=== PATIENT | male | born 1960 | race Caucasian/White ===

== ENCOUNTER 2018-11-11 11:55 | Emergency (ER) | payer OTHER ==
[~2018-11-11] VITALS: Ht 180.3 cm; Wt 111.1 kg
--- NOTE | 2018-11-11 11:55 | NUR ---
Patient BIBA BLS, transferred to bed 6. RN evaluating patient at bedside.
[2018-11-11 12:03] VITALS: BP 133/70
--- NOTE | 2018-11-11 12:06 | NUR ---
dr banuelos at bedside
[2018-11-11] MEDS ORDERED: NEOMYCIN/POLYMYXIN/BACITRACIN 0.9 GM/1 PKT TP ONE ×2 (12:10)
[2018-11-11] MEDS ORDERED: LIDOCAINE 1% 500 MG/50 ML VIAL INJ ONE ×2 (12:10)
[2018-11-11] MEDS ORDERED: ONDANSETRON 4 MG/2 ML VIAL IVP ONE (12:10)
[2018-11-11] MEDS ORDERED: NACL 0.9% 1,000 ML IV SCH (12:10)
--- NOTE | 2018-11-11 12:10 | NUR ---
ekg completed and handed to dr banuelos to read
--- NOTE | 2018-11-11 12:25 | NUR ---
MIKE S/P FALL & LOC WHILE PLAYING TENNIS TODAY. PT SUSTAINED A 2.5" LACERATION WITH SURROUNDING HEMATOMA TO THE BACK OF HIS HEAD. PT STATES HE DOES NOT REMBER FALLING BUT HE REMEMBERS WHAT HE WAS DOING PRIOR. HE STATES HE ATE A LIGHT BREAKFAST THIS MORNING, BUT HAS BEEN FEELING "OFF" LATELY. WHEN CLARIFYINF WHAT "OFF" MEANT, HE SAID HIS TOLERANCE FOR ACTIVITY HAS BEEN LOWER LATELY. HE DENIES N/V/PAIN, CP/SOB AT THIS TIME. PT IS ALERT AND ANSWERING QUESTIONS APPROPRIATELY AT THIS TIME. PLACED IN GOWN AND ON [employer] WORKER. BED IN LOW POSITION, SIDE RAIL UP X1.
--- NOTE | 2018-11-11 12:25 | NUR ---
Patient taken to CT scan via gurney by [employer].
--- NOTE | 2018-11-11 12:25 | NUR ---
lead manufacturing technician at bedside.
--- NOTE | 2018-11-11 12:27 | NUR ---
PROVIDED PT WITH URINAL AND A CUP OF WATER AT BEDSIDE
--- NOTE | 2018-11-11 12:32 | NUR ---
laceration tray, sutures, and sterile gloves placed bedside for dr banuelos
--- NOTE | 2018-11-11 12:33 | NUR ---
Patient returned from CT scan. RN re-evaluating patient at bedside.
--- NOTE | 2018-11-11 12:35 | NUR ---
lab at bedside
[2018-11-11] MEDS ORDERED: cefTRIAXone 1,000 MG VIAL ONE (12:46)
[2018-11-11] MEDS ORDERED: LIDOCAINE MPF 1% - 5 mL VIAL 20 ML ONE (12:48)
[2018-11-11 12:52] LABS: BASOPHILS % (AUTO) 0.4 % (0.0-2.0); EOSINOPHILS # (AUTO) 0.5 K/uL (0-0.4); EOSINOPHILS % (AUTO) 4.8 % (0.0-4.0); HEMATOCRIT 39.7 % (36-52); HEMOGLOBIN 12.8 g/dL (12.0-18.0); LYMPHOCYTES # (AUTO) 1.5 K/uL (2.0-11.5); LYMPHOCYTES % (AUTO) 14.6 % (20.5-51.1); MEAN CORPUSCULAR HEMOGLOBIN 21 pg (27-31); MEAN CORPUSCULAR HGB CONC 32 g/dL (33-37); MEAN CORPUSCULAR VOLUME 64.2 fL (80-94); MONOCYTES # (AUTO) 0.8 K/uL (0.8-1.0); MONOCYTES % (AUTO) 7.2 % (1.7-9.3); NEUTROPHILS # (AUTO) 7.6 K/uL (1.8-7.7); PLATELET COUNT (AUTO) 374 K/uL (140-450); RED BLOOD CELL COUNT(AUTO) 6.18 MIL/uL (4.20-6.10); RED CELL DISTRIBUTION WIDTH 15.3 % (11.6-13.7); WHITE BLOOD COUNT (AUTO) 10.4 K/uL (4.8-10.8)
--- NOTE | 2018-11-11 13:01 | NUR ---
STILL WAITING FOR PT TO PROVIDE URINE SAMPLE
[2018-11-11 13:06] LABS: ALBUMIN 4.1 g/dL (3.4-5.0); ANION GAP 15.6 (8-16); CARBON DIOXIDE 26.5 mmol/L (21-32); CREATININE 1.7 mg/dL (0.7-1.3); MAGNESIUM 2.5 mg/dL (1.8-2.4); POTASSIUM 5.1 mmol/L (3.5-5.1); TOTAL BILIRUBIN 0.8 mg/dL (0.0-1.0)
--- NOTE | 2018-11-11 13:09 | NUR ---
Dr. Horvath evaluating patient at bedside.
--- NOTE | 2018-11-11 13:35 | NUR ---
sutered pts wound and placed neosporin EMT then placed gauze to cover wound then wrapped it with roll gauze
--- NOTE | 2018-11-11 13:45 | NUR ---
STILL WAITING FOR PT TO PROVIDE URINE SAMPLE. DR. BLANCAS AWARE
[2018-11-11 14:03] LABS: PROTHROMBIN TIME 9.8 secs (10.8-13.4)
--- NOTE | 2018-11-11 14:47 | NUR ---
URINE COLLECTED AND SENT TO LAB
--- NOTE | 2018-11-11 14:50 | NUR ---
ASSISTED PT TO AMBULATE TO THE RESTROOM, PT HAS EVEN ANS STEADY GAIT
[2018-11-11 15:11] LABS: APPEARANCE,URINE CLEAR (CLEAR); BILIRUBIN,URINE NEGATIVE (NEGATIVE); BLOOD, URINE NEGATIVE (NEGATIVE); COLOR,URINE YELLOW (YELLOW); LEUKOCYTE ESTERASE ,URINE NEGATIVE (NEGATIVE); NITRITE, URINE NEGATIVE (NEGATIVE); PH,URINE 5.5 (5.0-9.0); UGLUCOSE NEGATIVE (NEGATIVE)
[2018-11-11 15:26] LABS: BARBITURATE, URINE NEG. ng/ml (NEG <=200); BENZODIAZEPINE, URINE NEG. ng/mL (NEG <=200); CANNABINOID, URINE NEG. ng/mL (NEG <=50); COCAINE, URINE NEG. ng/mL (NEG <=300); OPIATE, URINE NEG. ng/mL (NEG <=2000); PHENCYCLIDINE SCREEN,URINE NEG. ng/mL (NEG <=25)
--- NOTE | 2018-11-11 15:38 | NUR ---
SPOKE WITH GERMAN GEORGES AT [facility] TO GIVE REPORT ON PT. HE IS AWARE PT WILL BE PICKED UP BY EMS AT APPROX. 15:45Patient to be transferred to [facility]. Is being transferred due to INSURANCE REQUEST FOR CONTINUATION OF CARE. Receiving facility has accepting physician and available space. ER physician has signed transfer form. Patient or responsible libertarian has agreed to transfer and signed form. Patient belongings inventoried and will be sent with patient. Copy of nursing notes, lab reports, EKG, Physicians Orders and X-rays to be sent with patient. Report called to GERMAN GEORGES at receiving facility. [facility] ambulance service has been called for transfer. ETA is [id number].
[2018-11-11 16:12] VITALS: BP 120/75
--- NOTE | 2018-11-11 16:13 | NUR ---
Patient Tranfers to outside Facility Physician:DR. Ángel MOJICA Location: [facility] REPORT GIVEN TO VENUS GEORGES AT [facility]
== END 2018-11-11 16:13 | disposition short-term general hospital (02) ==
LOC: MED 11:55
DX: S01.01XA Laceration without foreign body of scalp, initial encounter (principal); I25.10 Atherosclerotic heart disease of native coronary artery without angina pectoris; R94.31 Abnormal electrocardiogram [ECG] [EKG]; Z85.038 Personal history of other malignant neoplasm of large intestine; W18.39XA Other fall on same level, initial encounter; Y93.89 Activity, other specified; Y92.89 Other specified places as the place of occurrence of the external cause; Y99.8 Other external cause status
CPT/HCPCS: 12002; 36415; 70450; 71045; 80053; 80305; 81003; 82150; 82550; 83690; 83735; 84484; 85025; 85379; 85610; 86886; 86900; 86901; 90471; 90715; 96365; 96375; 99285; J0696; J2001; J2405; J7060; 93005; J7030